=== PATIENT | female | born 1985 | race Caucasian/White ===

== ENCOUNTER 2016-10-19 20:57 | Emergency (ER) | payer MEDICAID ==
[2016-10-19] MEDS: HYDROCODONE/APAP 5/325MG TABLET PO ONE ×2 (21:28→22:24)
[2016-10-19] MEDS: ONDANSETRON 4 MG ODT TABLET SL ONE (21:30)
--- NOTE | 2016-10-19 22:10 | Emergency Department Record ---
History of Present Illness - General Chief complaint: Pain Stated complaint: RT SHOULDER INJURY Time Seen by Provider: 10/19/16 21:17 Source: Patient Mode of Arrival: Ambulatory Limitations: No limitations - History of Present Illness Initial comments: pt was trying to lift herself out of pool when she had sudden onset of pain in r shoulder and scapula. she thought that she might have dislocated it. this happened 8 hrs ago. shoulder has contd to ranjan SWEET Complaint: Extremity pain, Joint pain Onset/Timin -: Hour(s) Location: Right, Shoulder History of Same: No Radiation: None Consistency: Constant Improves with: Immobilization, Rest Worsens with: Exertion, Palpation Associated Symptoms: Denies other symptoms - Related Data Home Medications Medication Instructions Recorded Confirmed Last Taken Alprazolam [Xanax] 0.5 mg PO BID 10/19/16 10/19/16 Unknown Citalopram Hydrobromide [Celexa] 20 mg PO DAILY 10/19/16 10/19/16 Unknown Thyroid,Pork [[place] Thyroid] 33 mg PO DAILY 10/19/16 10/19/16 Unknown Previous Rx's Medication Instructions Recorded Hydrocodone/Acetaminophen [Yantis 1 each PO Q6HR #10 tablet 10/19/16 5-325 Tablet] Allergies Allergy/AdvReac Type Severity Reaction Status Date / Time metoclopramide [From Reglan] Allergy PT UNSURE Verified 10/19/16 21:11 OF REACTION Travel Screening - Travel/Exposure Within Last 30 Days Have you traveled within the last 30 days?: No - Travel/Exposure Within Last Year Have you traveled outside the [place] in the last year?: No - Additonal Travel Details Have you been exposed to anyone with a communicable illness?: No - Travel Symptoms Symptom Screening: None Review of Systems Reviewed: No additional complaints except as noted below Constitutional: Reports: As per HPI. Denies: Chills, Fever, Malaise, Night sweats, Weakness, Weight change Eyes: Reports: As per HPI. Denies: Eye discharge, Eye pain, Photophobia, Vision change ENT: Reports: As per HPI. Denies: Congestion, Dental pain, Ear pain, Epistaxis , Hearing loss, Throat pain Respiratory: Reports: As per HPI. Denies: Cough, Dyspnea, Hemoptysis, Stridor, Wheezes Cardiovascular: Reports: As per HPI. Denies: Arrhythmia, Chest pain, Dyspnea on exertion, Edema, Murmurs, Orthopnea, Palpitations, Paroxysmal nocturnal dyspnea, Rheumatic Fever, Syncope Endocrine: Reports: As per HPI. Denies: Fatigue, Heat or cold intolerance, Polydipsia, Polyuria Gastrointestinal: Reports: As per HPI. Denies: Abdominal pain, Constipation, Diarrhea, Hematemesis, Hematochezia, Melena, Nausea, Vomiting Genitourinary: Reports: As per HPI. Denies: Abnormal menses, Discharge, Dyspareunia, Dysuria, Frequency, Hematuria, Incontinence, Retention, Urgency Musculoskeletal: Reports: As per HPI. Denies: Arthralgia, Back pain, Gout, Joint swelling, Myalgia, Neck pain Skin: Reports: As per HPI. Denies: Bruising, Change in color, Change in hair/ nails, Lesions, Pruritus, Rash Neurological: Reports: As per HPI. Denies: Abnormal gait, Confusion, Headache, Numbness, Paresthesias, Seizure, Tingling, Tremors, Vertigo, Weakness Psychiatric: Reports: As per HPI. Denies: Anxiety, Auditory hallucinations, Depression, Homicidal thoughts, Suicidal thoughts, Visual hallucinations Hematological/Lymphatic: Reports: As per HPI. Denies: Anemia, Blood Clots, Easy bleeding, Easy bruising, Swollen glands Past Medical History - SOCIAL HISTORY Smoking Status: Never smoker Alcohol Use: None Drug Use: None - RESPIRATORY Hx Respiratory Disorders: No - CARDIOVASCULAR Hx Cardio Disorders: No - NEURO Hx Neuro Disorders: No - GI Hx GI Disorders: No - Hx Genitourinary Disorders: No - ENDOCRINE Hx Endocrine Disorders: Yes Hx Thyroid Disease: Yes (carl's disease) - MUSCULOSKELETAL Hx Musculoskeletal Disorders: No - PSYCH Hx Psych Problems: No - HEMATOLOGY/ONCOLOGY Hx Hematology/Oncology Disorders: No Family Medical History Any Significant Family History?: No Physical Exam - General General Appearance: Alert, Oriented x3, Cooperative, Mild distress - Head Head exam: Normal inspection - Eye Eye exam: Normal appearance, PERRL, EOMI Pupils: Normal accommodation - ENT ENT exam: Normal exam, Mucous membranes moist, Normal external ear exam, Normal orophraynx Ear exam: Normal external inspection. negative: External canal tenderness Nasal Exam: Normal inspection. negative: Discharge, Sinus tenderness Mouth exam: Normal external inspection, Tongue normal Teeth exam: Normal inspection. negative: Dental caries Throat exam: Normal inspection. negative: Tonsillar erythema, Tonsillar exudate - Neck Neck exam: Normal inspection, Full ROM. negative: Tenderness - Respiratory Respiratory exam: Normal lung sounds bilaterally. negative: Respiratory distress - Cardiovascular Cardiovascular Exam: Regular rate, Normal rhythm, Normal heart sounds - GI/Abdominal GI/Abdominal exam: Soft, Normal bowel sounds. negative: Tenderness - Rectal Rectal exam: Deferred - exam: Deferred - Extremities Extremities exam: Normal capillary refill, Tenderness. negative: Full ROM Image of Full Body: 1 - tender - Back Back exam: Reports: Normal inspection, Full ROM. Denies: Muscle spasm, Rash noted, Tenderness - Neurological Neurological exam: Alert, CN II-XII intact, Normal gait, Oriented X3 - Psychiatric Psychiatric exam: Normal affect, Normal mood - Skin Skin exam: Dry, Intact, Normal color, Warm Course Vital Signs 10/19/16 21:04 Temperature 98.2 F Pulse Rate 94 H Respiratory 20 Rate Blood Pressure 124/72 Pulse Ox 100 Disposition Disposition: Discharge Clinical Impression: Rotator cuff tear Qualifiers: Rotator cuff tear extent: unspecified tear extent Laterality: right Qualified Code(s): M75.101 - Unspecified rotator cuff tear or rupture of right shoulder, not specified as traumatic Disposition: Home, Self-Care Condition: (1) Good Instructions: Rotator Cuff Injury (ED) Additional Instructions: wear sling for 3 days only. follow up with family doctor and orthopedics, return sooner if worse. motrin with food as needed. Prescriptions: Hydrocodone/Acetaminophen [Yantis 5-325 Tablet] 1 each PO Q6HR #10 tablet Forms: Patient Portal Access
[2016-10-19] MEDS: IBUPROFEN 600 MG TABLET PO ONE (22:15)
--- NOTE | 2016-10-20 14:17 | RADIOLOGY REPORT ---
EXAM: RIGHT SHOULDER, THREE VIEWS HISTORY: INJURED IN POOL JUMPING ON FLOTATION DEVICE. POSSIBLE DISLOCATION. TECHNIQUE: Three views of the right shoulder were obtained. Comparison: None. Encounter: Initial. FINDINGS: No bone or joint abnormality. IMPRESSION: NEGATIVE RIGHT SHOULDER EXAMINATION. JOB NUMBER: [id number] MTDD
== END 2016-10-19 22:26 | disposition home or self-care (01) ==
LOC: ER 20:57
DX: S46.011A Strain of muscle(s) and tendon(s) of the rotator cuff of right shoulder, initial encounter (principal); X50.0XXA Overexertion from strenuous movement or load, initial encounter; Y93.11 Activity, swimming
CPT/HCPCS: 99283